=== PATIENT | male | born 1960 | race African-American/Black ===

== ENCOUNTER 2016-09-12 19:36 | Emergency (ER) | payer OTHER ==
[~2016-09-12] VITALS: Ht 177.8 cm; Wt 65.8 kg
[2016-09-12 19:48] VITALS: BP 137/86
--- NOTE | 2016-09-12 20:40 | ED ANKLE/FOOT INJURY COMPLAINT ---
History of Present Illness General Chief Complaint: General Adult Stated Complaint: LEG PAIN Source: patient, old records Exam Limitations: no limitations Vital Signs & Intake/Output Vital Signs & Intake/Output ED Intake and Output 09/13 0000 09/12 1200 Intake Total 0 Output Total Balance 0 Intake, Oral 0 Patient 145 lb Weight Weight Reported by Patient Measurement Method Allergies Uncoded Allergies: SEASONAL (06/19/11) Reconcile Medications Hydrochlorothiazide 12.5 MG CAPSULE 1 CAP PO DAILY BP (Reported) Methylprednisolone. (Medrol) 4 MG TAB.DS.PK 1 DP PO AD radiculopathy 6 on day 1 then reduce by one tablet daily until gone Multivitamin (Multi-Day Vitamins) 1 EACH TABLET 1 TAB PO DAILY SUPPLEMENT ( Reported) Triage Note: C/O PAIN TO BOTTOM OF RIGHT FOOT AND ASCENDS UP LEG INTO BACK OF RIGHT THIGH. HAS BEEN TAKING TYL/MOTRIN WITHOUT RELIEF, LAST DOSE TYLENOL 11AM. PAIN BETTER WITH STANDING, WORSE WITH SITTING AND BENDING OVER. HAS BEEN WEARING COMPRESSION STOCKINGS WITHOUT RELIEF. APPT WITH ENTERTAINMENT DANCER SCHEDULED FOR SATURDAY. DECLINES MOTRIN OFFERED STOCKINGS WITHOUT RELIEF. APPT WITH ENTERTAINMENT DANCER SCHEDULED FOR SATURDAY. DECLINES MOTRIN OFFERED Triage Nurses Notes Reviewed? yes Occurred: just prior to arrival Duration: day(s): (), constant Timing: recent history Severity: moderate Severity Numbers: 6 Pain/Injury Location: Right: Foot. Method of Injury: unknown No Modifying Factors: none Associated Symptoms: none HPI: 56-year-old male presents to ER for evaluation complaining of right foot pain that radiates up into his buttocks for the past 1 week. He denies any known injury or trauma. He is not taken anything for symptoms he denies stepping on anything no fever no chills or redness warmth or swelling to his foot. He reports symptoms as feeling tingling he has an appointment with a bridge instructor in 2 days. No modifying factors or associated symptoms otherwise. The pain is worse with change in position sitting to standing. (LINDEN WARD) Past History Travel History Traveled to [place] past 21 day No Medical History Any Pertinent Medical History? see below for history Neurological: NONE EENT: NONE Cardiovascular: hypertension Respiratory: NONE Gastrointestinal: NONE Hepatic: NONE Renal: NONE Musculoskeletal: NONE Psychiatric: NONE Endocrine: NONE Blood Disorders: NONE Cancer(s): NONE Surgical History Surgical History: none Psychosocial History What is your primary language Kittitian Tobacco Use: Never used ETOH Use: denies use Illicit Drug Use: denies illicit drug use Family History Hx Contributory? No (LINDEN WARD) Review of Systems Review of Systems Constitutional: Reports: see HPI. All Other Systems: Reviewed and Negative Comments Review of systems: See HPI, All other systems negative. Constitutional, no chills no fever, no malaise HEENT: No visual changes no sore throat no congestion Cardiovascular: No chest pain , no palpitation Skin: no rashes, no change in skin Respiratory: No dyspnea no cough GI: No nausea no vomiting, no diarrhea, Muscle skeletal: No joint pain, no joint swelling, no back pain, no neck pain, Neurologic: No numbness no headache Psych: No stress. Heme/endocrine: No bruising no bleeding Immunology: No lymphadenopathy (LINDEN WARD) Physical Exam Physical Exam General Appearance: well developed/nourished, no apparent distress, alert Leg/Knee/Thigh Left: normal range of motion Comments: Well-developed well-nourished patient in no apparent distress. HEENT: Atraumatic, extraocular motion intact Neck: Supple, FROM Back: FROM nontender Cardiovascular: Regular rate and rhythms no murmurs rubs Respiratory: No respiratory distress. Patient speaking in full complete sentences. Breath sounds clear to auscultation bilaterally: NO W/R/R UPPER Extremities: full range of motion Hip/Pelvis: Atraumatic/Stable. FROM. Knee: Atraumatic/stable. FROM. No joint swelling, no effusion. No laxity. Negative hayes/anterior drawer test. No pain with ROM Leg: Atraumatic. Positive straight leg raise to the right lower extremity Nontender. No edema, 5 out of 5 strength in the lower extremity, normal dorsiflexion of great toe bilaterally, gross sensation is intact, patellar tendon reflex 2+ bilaterally. Ankle/Foot: Atraumatic/stable. Skin intact. FROM. No swelling, no effusion. No laxity on exam Pulses: Normal/equal DP/PT pulses bilaterally. Brisk cap refill Neuro: awake, alert, and oriented to person, place and time. There were no obvious focal neurologic abnormalities. Skin: Warm & dry;No appreciable rash on exposed skin Psych: Mood affect normal, normal memory normal judgment. (LINDEN WARD) Progress Differential Diagnosis: DVT, cellulitis, dislocation, contusion, radiculopathy Plan of Care: Patient clinically looks well. Patient has no evidence of radiculopathy. No urinary bowel dysfunction. No numbness in the genital area. Strength intact. Gross sensation intact. Patient resting comfortably and in no apparent distress. Pain is worse with range of motion. Pain is reproducible IN back with no bruising or ecchymosis noted. . Patient is to follow-up with primary care doctor. May need MRI of the lower back at some point time. No concerns for cauda equina at this point time. I considered this diagnosis but patient does not have any symptoms consistent with cauda equina. Patient has no secondary causes of back pain. No cardiac, pulmonary, or abdominal complaints. No abdominal pain on exam. Cardiac pulmonary exam within normal limits. No rashes, afebrile, denies recent weight loss, dizziness, lightheadedness (LINDEN WARD) Departure Departure Time of Disposition: 2103 Disposition: HOME OR SELF CARE Condition: Stable Clinical Impression Primary Impression: Lumbar radiculopathy Referrals: LILLIANA LEE MD (PCP/Family) Additional Instructions: follow up with your pmd as well as bridge instructor. medrol dose vita as directed. return with any concerns Departure Forms: Customer Survey General Discharge Information Prescriptions: Current Visit Scripts Methylprednisolone. (Medrol) 1 DP PO AD #1 DP 6 on day 1 then reduce by one tablet daily until gone (LINDEN WARD) PA/BUSINESS SERVICES SALES REPRESENTATIVE Co-Sign Statement Statement: ED Attending supervision documentation- [] I saw and evaluated the patient. I have also reviewed all the pertinent lab results and diagnostic results. I agree with the findings and the plan of care as documented in the PA's/BUSINESS SERVICES SALES REPRESENTATIVE's documentation. [X] I have reviewed the ED Record and agree with the PA's/BUSINESS SERVICES SALES REPRESENTATIVE's documentation. [] Additions or exceptions (if any) to the PAs/BUSINESS SERVICES SALES REPRESENTATIVE's note and plan are summarized below: [] (FATMATA COURTNEY,LINDSAY)
[2016-09-12] MEDS ORDERED: MULTI-DAY VITA1 EACH PO (21:01)
[2016-09-12] MEDS ORDERED: HYDROCHLOROTH12.5 M3 PO (21:01)
[2016-09-12] MEDS ORDERED: MEDROL4 M2 PO (21:05)
== END 2016-09-12 21:34 ==
LOC: ERH 19:36
DX: M54.16 Radiculopathy, lumbar region (principal)